=== PATIENT | female | born 1955 | race Caucasian/White ===

== ENCOUNTER 2019-04-23 20:50 | Emergency (ER) | payer SELFPAY ==
[~2019-04-23] VITALS: Ht 157.5 cm; Wt 62.0 kg
[2019-04-23] MEDS ORDERED: IBUPROFEN 600MG TABLET PO ONE (23:45)
[2019-04-24 01:28] VITALS: BP 156/74
== END 2019-04-24 01:29 | disposition home or self-care (01) ==
LOC: ER 20:50
DX: S23.41XA Sprain of ribs, initial encounter (principal); X50.0XXA Overexertion from strenuous movement or load, initial encounter; Y93.89 Activity, other specified; Y92.89 Other specified places as the place of occurrence of the external cause; Y99.0 Civilian activity done for income or pay; R03.0 Elevated blood-pressure reading, without diagnosis of hypertension
CPT/HCPCS: 71101; 99283